=== PATIENT | male | born 1950 | race Caucasian/White ===

== ENCOUNTER 2017-03-27 16:16 | Emergency (ER) | payer MEDICARE, OTHER ==
[2017-03-27] MEDS ORDERED: NALOXONE HCL 4 MG/10 ML MDV IV ONE (16:17)
[2017-03-27] MEDS ORDERED: EPINEPHrine HCL (1:10,000) 1 MG/10 ML SYRINGE IV ONE (16:17)
--- NOTE | 2017-03-27 17:21 | PD ---
HPI Chief Complaint: Code Blue Time Seen by Provider: 16:39 Travel History International Travel<30 days: No Contact w/Intl Traveler<30days: No History of Present Illness HPI Patient is approximately 64 years old and arrives as a cardiopulmonary arrest. EMS was called to scene for a general medical evaluation. The patient was encountered in a house known to be frequented by PSA/IVDA persons. Evidently he was given oxycodone prescription yesterday. ems encountered the patient asystolic and apneic. EMS started ACLS protocol with Combitube intubation. No pulse and no rhythm observed throughout transport and total ACLS protocol reported to be about 40 minutes. The patient arrives with fixed dilated pupils. No pulse. Patient was intubated by me shortly following arrival. Breath sounds and color change observed. CPR was continued for about 15 minutes. There is no return of pulses. The patient also received 2 mg IV Narcan following arrival and received 2 mg IV Narcan en route. Patient was pronounced at 4:25 PM. [facility] Social History Tobacco Use: No (UNKNOWN UNABLE TO ASSESS) Review of Systems ROS Limitations: Clinical Condition, Intubated Physical Exam Narrative GENERAL: 24-year-old male intubated with a Combitube with chest compressions performed at bedside SKIN: Warm and dry. HEAD: Atraumatic. Normocephalic. EYES: Pupils fixed and dilated. ENT: No nasal bleeding or discharge. Emesis about the mouth and nares NECK: Trachea midline. No JVD. CARDIOVASCULAR: Asystole RESPIRATORY: Breath sounds present with bag valve ventilation GASTROINTESTINAL: Abdomen soft, non-tender, nondistended. Hepatic and splenic margins not palpable. MUSCULOSKELETAL: Extremities without clubbing, cyanosis, or edema. No obvious deformities. NEUROLOGICAL: GCS 3T. Pupils fixed and dilated PSYCHIATRIC: Unable to assess MDM Medical Decision Making Medical Screen Exam Complete: Yes Emergency Medical Condition: Yes Differential Diagnosis Nontoxic, aspiration, cardiopulmonary arrest from IV drug abuse, IV overdose opioid Narrative Course Please refer to the history of present illness. The patient was pronounced at 1625. Positive dust was intubated opioid overdose with aspiration followed by cardiopulmonary arrest. Pt will be a medical advisor evaluation. Diagnosis Primary Impression: Disposition: 20 Condition: Nathan Ramos MD Mar 27, 2017 17:21
== END 2017-03-27 18:30 | disposition expired ==
LOC: NEPE 16:16 → EDBD 16:16 → NEPI 18:30
DX: I46.9 Cardiac arrest, cause unspecified (principal)
CPT/HCPCS: 31500; 92950; 96374; 96375; 99283; J0171; J2310